=== PATIENT | male | born 1990 ===

== ENCOUNTER 2025-05-31 09:46 | Emergency (ER) | payer MEDICAID ==
[~2025-05-31] VITALS: Ht 185.4 cm; Wt 72.6 kg
[2025-05-31 10:12] VITALS: O2SAT 100
[2025-05-31] MEDS ORDERED: LIDOCAINE HCL 1% 20ML VIAL INFIL ONE (12:00)
[2025-05-31] MEDS: BACITRACIN ZINC OINT UDPKT TOP ONE (12:43)
[2025-05-31] MEDS ORDERED: BO1 TP (13:30)
[2025-05-31] MEDS ORDERED: CEPH500T MT (13:30)
[2025-05-31 13:47] VITALS: BP 111/79; PULSE 70; RESP 18; TEMP 36.8; O2SAT 100
== END 2025-05-31 13:48 | disposition home or self-care (01) ==
LOC: ER 09:46
DX: S61.302A Unspecified open wound of right middle finger with damage to nail, initial encounter (principal); Z85.6 Personal history of leukemia; W22.01XA Walked into wall, initial encounter; Y93.89 Activity, other specified; Y92.89 Other specified places as the place of occurrence of the external cause; Y99.8 Other external cause status
CPT/HCPCS: 99285; 11760; J2003; 99284